=== PATIENT | male | born 1980 | race Caucasian/White ===

== ENCOUNTER 2017-08-23 16:47 | Emergency (ER) | payer OTHER ==
[2017-08-23] MEDS ORDERED: morphine 2 MG INJ (17:37)
== END 2017-08-23 17:00 | disposition home or self-care (01) ==
LOC: E/R 16:47
DX: Z76.0 Encounter for issue of repeat prescription (principal)
CPT/HCPCS: 99281; J2270

== ENCOUNTER 2017-08-25 13:04 | Emergency (ER) | payer OTHER ==
[2017-08-25] MEDS: LORAZEPAM 0.5 MG TAB PO (14:23)
[2017-08-25 14:32] LABS: URINE BLOOD (Dip) POC Negative (NEGATIVE); URINE GLUCOSE (Dip) POC Negative (NEGATIVE); URINE KETONES (Dip) POC Negative (NEGATIVE); URINE LEUKOCYTE EST (Dip) POC Negative (NEGATIVE); URINE NITRITE (Dip) POC Negative (NEGATIVE); URINE TOTAL PROTEIN POC Negative (NEGATIVE)
[2017-08-25 15:02] LABS: ANION GAP 18 (8-16); BLOOD UREA NITROGEN 23 mg/dl (7-20); CARBON DIOXIDE 25 mmol/L (21-31); CHLORIDE 100 mmol/L (97-110); CREATININE 0.91 mg/dl (0.61-1.24); GLUCOSE 108 mg/dl (70-220); POTASSIUM 3.8 mmol/L (3.5-5.1); SODIUM 139 mmol/L (135-144)
[2017-08-25] MEDS: KETOROLAC 15 MG INJ IM (15:31)
== END 2017-08-25 16:19 | disposition home or self-care (01) ==
LOC: FTE 13:04
DX: S93.401A Sprain of unspecified ligament of right ankle, initial encounter (principal); F15.90 Other stimulant use, unspecified, uncomplicated; X58.XXXA Exposure to other specified factors, initial encounter; Y92.9 Unspecified place or not applicable
CPT/HCPCS: 73610; 73610-RT; 80048; 81003; 96372; 99284-25

== ENCOUNTER 2017-09-30 14:43 | Emergency (ER) | payer OTHER ==
[2017-09-30] MEDS: OLANZAPINE (ODT) 5 MG TAB ODT (15:39)
[2017-09-30 16:02] LABS: WHITE BLOOD COUNT 7.5 10^3/ul (4.8-10.8)
[2017-09-30 16:02] LABS: ADD MAN DIFF? NO; BASOPHILS % 0.3 % (0.0-2.0); EOSINOPHILS # 0.1 10^3/ul (0.0-0.5); EOSINOPHILS % 1.5 % (0.0-7.0); HEMOGLOBIN 15.1 g/dl (14.0-18.0); LYMPHOCYTES # 2.1 10^3/ul (0.8-2.9); LYMPHOCYTES % 28.3 % (15.0-51.0); MEAN CORPUSCULAR HEMOGLOBIN 30.1 pg (29.0-33.0); MEAN CORPUSCULAR HGB CONC 34.3 g/dl (32.0-37.0); MEAN CORPUSCULAR VOLUME 87.8 fl (82.0-101.0); MEAN PLATELET VOLUME 9.7 fl (7.4-10.4); MONOCYTE # 0.6 10^3/ul (0.3-0.9); MONOCYTES % 7.5 % (0.0-11.0); NEUTROPHIL # 4.6 10^3/ul (1.6-7.5); NEUTROPHILS % 62.1 % (39.0-77.0); PLATELET COUNT 268 10^3/UL (140-415); RED BLOOD COUNT 5.01 10^6/ul (4.70-6.10)
[2017-09-30 16:19] LABS: ALANINE AMINOTRANSFERASE 52 IU/L (13-69); ALBUMIN 5.1 g/dl (3.3-4.9); ALBUMIN/GLOBULIN RATIO 1.37; ALKALINE PHOSPHATASE 70 IU/L (42-121); ANION GAP 21 (8-16); ASPARTATE AMINO TRANSFERASE 32 IU/L (15-46); BILIRUBIN,INDIRECT 0.6 mg/dl (0-1.1); BILIRUBIN,TOTAL 0.6 mg/dl (0.2-1.3); BLOOD UREA NITROGEN 18 mg/dl (7-20); CALCIUM 9.7 mg/dl (8.4-10.2); CARBON DIOXIDE 25 mmol/L (21-31); CHLORIDE 103 mmol/L (97-110); GLUCOSE 137 mg/dl (70-220); POTASSIUM 4.1 mmol/L (3.5-5.1); SODIUM 145 mmol/L (135-144); TOTAL PROTEIN 8.8 g/dl (6.1-8.1)
[2017-09-30 16:22] LABS: ADD UMIC NO; UR ASCORBIC ACID NEGATIVE (NEGATIVE); UR BILIRUBIN (Dip) NEGATIVE (NEGATIVE); UR BLOOD (Dip) NEGATIVE (NEGATIVE); UR CLARITY CLEAR (CLEAR); UR COLOR YELLOW (YELLOW); UR GLUCOSE (Dip) NEGATIVE (NEGATIVE); UR KETONES (Dip) NEGATIVE (NEGATIVE); UR LEUKOCYTE ESTERASE (Dip) NEGATIVE Leu/ul (NEGATIVE); UR NITRITE (Dip) NEGATIVE (NEGATIVE); UR SPECIFIC GRAVITY (Dip) 1.028 (1.003-1.030); UR TOTAL PROTEIN (Dip) NEGATIVE (NEGATIVE); UR UROBILINOGEN (Dip) NEGATIVE (NEGATIVE)
[2017-09-30 16:27] LABS: ACETAMINOPHEN < 10.0 ug/ml (10.0-30.0); ETHANOL < 10.0 mg/dl; SALICYLATE < 1.0 mg/dl (5.0-30.0)
[2017-09-30 16:40] LABS: BARBITURATES Negative (NEGATIVE); BENZODIAZEPINES Negative (NEGATIVE); CANNABINOIDS Negative (NEGATIVE); COCAINE Negative (NEGATIVE); OPIATES Negative (NEGATIVE)
[2017-09-30 16:41] LABS: AMPHETAMINE/METHAMPHETAMINE Positive (NEGATIVE)
== END 2017-09-30 17:03 | disposition home or self-care (01) ==
LOC: E/R 14:43
DX: F20.9 Schizophrenia, unspecified (principal); R07.9 Chest pain, unspecified
CPT/HCPCS: 71045; 80053; 80307; 81003; 85025; 99285-25

== ENCOUNTER 2017-10-06 23:28 | Emergency (ER) | payer OTHER ==
[2017-10-07] MEDS: KETOROLAC 60 MG INJ IM (00:14)
== END 2017-10-07 02:41 | disposition home or self-care (01) ==
LOC: FTE 23:28
DX: M79.671 Pain in right foot (principal); M79.672 Pain in left foot
CPT/HCPCS: 73630; 73630-50; 96372; 99284-25

== ENCOUNTER 2017-10-08 21:13 | Emergency (ER) | payer OTHER | END 2017-10-09 00:45 | disposition home or self-care (01) | LOC: E/R 21:13 | DX: G47.00 Insomnia, unspecified (principal); E11.9 Type 2 diabetes mellitus without complications; F17.210 Nicotine dependence, cigarettes, uncomplicated | CPT/HCPCS: 99283; Z7502 ==

== ENCOUNTER 2018-08-08 16:15 | Emergency (ER) | payer OTHER ==
[2018-08-08] MEDS: LORAZEPAM 1 MG TAB PO (21:30)
[2018-08-08] MEDS: HALOPERIDOL 5 MG TAB PO (21:30)
== END 2018-08-08 21:31 | disposition home or self-care (01) ==
LOC: E/R 16:15
DX: F41.9 Anxiety disorder, unspecified (principal); F17.210 Nicotine dependence, cigarettes, uncomplicated; R00.0 Tachycardia, unspecified
CPT/HCPCS: 71045; 93005; 99283-25